=== PATIENT | female | born 1985 | race Caucasian/White ===

== ENCOUNTER → 2016-11-30 | Outpatient (CLI) | payer BC ==
--- NOTE | 2016-11-30 13:06 | KCIC ---
PROCEDURE MR of the right tibia fibula without contrast HISTORY Right lower leg pain after injury 6 days ago. Instant pain followed by bruising and swelling. TECHNIQUE Routine multiplanar sequences are obtained. COMPARISON None FINDINGS There is intermuscular fluid or hemorrhage between the medial gastrocnemius and soleus muscle. The plantaris tendon is not visualized, potentially ruptured, if present in this patient. Mild edema within the medial gastrocnemius muscle and the medial edge of the lateral gastrocnemius muscle, compatible with intramuscular strain, with mild partial tearing. No bone lesion. No acute fracture. No periosteal reaction. IMPRESSION 1. Strain with mild partial tear at the distal gastrocnemius muscles. 2. Intermuscular fluid/hematoma between the soleus and gastrocnemius muscles. Plantaris tendon not visualized, could be ruptured if present. Electronically signed by: Maxim Rucker MD (November 30, 2016 13:04:39)
== END | disposition home or self-care (01) ==
LOC: KCIC MRI 07:50
PROVIDERS: ATTEND Physician Assistant
DX: M79.604 Pain in right leg (principal)
CPT/HCPCS: 73718